=== PATIENT | male | born 1980 | race Asian ===

== ENCOUNTER 2017-03-07 09:04 | Emergency (ER) | payer SELFPAY ==
[2017-03-07 09:17] VITALS: BP 127/80
--- NOTE | 2017-03-07 09:42 | XRay Report ---
LEFT FINGERS, 3 VIEWS History: Pain, swelling. Findings: Posterior dislocation is identified at the proximal interphalangeal joint of the fifth digit. There is no obvious associated fracture. The remaining bony structures and joint spaces are unremarkable. Impression: Posterior dislocation, PIP joint, fifth digit.
--- NOTE | 2017-03-07 11:16 | Emergency Department Report ---
Upper Extremity - HPI Chief Complaint: Extremity Injury, Upper Stated Complaint: LEFT HAND FINGER INJURE Time Seen by Provider: 03/07/17 10:57 Upper Extremity: Left Little Finger (injury to left little finger, With pain and swelling) Occurred When: 1 Day Mechanism: Fall Severity: severe (8 out of 10) Symptoms: Yes Pain with Movement (left small digit), Yes Deformity (left small digit), Yes Limited Range of Movement (Left small digit), Yes Swelling, No Numbness, No Weakness, No Bruising/Ecchymosis, No Laceration or Abrasion Other History: Patient here reports that he slipped and fell on wet floor last night and hit is left fifth finger on the ground. Denies any other injury. He is complaining of pain 8 out of 10 to his left fifth digit. Denies any numbness or tingling. He reports swelling. Immunizations up-to-date. No radiation of pain. ED Review of Systems ROS: Stated complaint: LEFT HAND FINGER INJURE Other details as noted in HPI Comment: All other systems reviewed and negative Constitutional: no symptoms reported Respiratory: no symptoms reported Cardiovascular: denies: chest pain, palpitations, dyspnea on exertion, edema, syncope, paroxysmal nocturnal dyspnea Gastrointestinal: denies: nausea, vomiting Musculoskeletal: joint swelling, arthralgia. denies: back pain, myalgia Skin: denies: rash Neurological: denies: headache, weakness, numbness, paresthesias, confusion, abnormal gait, vertigo ED Past Medical Hx - Past Medical History Previous Medical History?: Yes Hx Asthma: Yes - Surgical History Past Surgical History?: No - Family History Family history: no significant - Social History Smoking Status: Never Smoker Substance Use Type: None - Medications Home Medications: Home Medications Medication Instructions Recorded Confirmed Last Taken Type Ibuprofen [Motrin] 800 mg PO Q8HR PRN 5 Days #15 03/07/17 Unknown Rx tablet Upper Extremity Exam - Exam General: Vital signs noted. No distress. Alert and acting appropriately. This is a 36-year-old male well-nourished well-developed in no acute distress Head and Torso: No HEENT Abnormality, No Neck Tenderness, No Chest/Lungs Abnormality, No Abdominal Tenderness, No Back Tenderness Shoulder Exam: Yes Normal Range of Motion in Shoulder, No Shoulder Tenderness, No Clavicle Tenderness, No Shoulder Deformity, No AC Joint Tenderness Arm Exam: No Arm/Humerus Tenderness, No Arm Deformity Elbow: Yes Normal Range of Motion in Elbow, No Elbow Tenderness, No Elbow Deformity Forearm: No Forearm Tenderness, No Forearm Deformity, No Pain with Pronation, No Pain with Supination Wrist: Yes Normal ROM in Wrist, No Wrist Tenderness, No Wrist Deformity, No Snuffbox Tenderness, No Pain with Axial Thumb Compression Hand: Yes Digit Tenderness (left fifth digit), Yes Digit(s) Deformity (fifth digits at proximal phalanx), No Hand Tenderness, No Hand Deformity, No Normal ROM in Digit(s) (did range of motion to the left fifth digit otherwise normal), No Tendon Dysfunction CMS Exam: Yes Normal Distal Pulses, Yes Normal Capillary Refill, Yes Normal Distal Sensation, No Broken Skin ED Course Vital Signs 03/07/17 09:13 Temperature 97.7 F Pulse Rate 66 Respiratory 20 Rate Blood Pressure 127/80 O2 Sat by Pulse 96 Oximetry - Reevaluation(s) Reevaluation #1: 03/07/17 12:19 Patient x-ray reveal patient with dislocation of left fifth digit. Digital block to left fifth digits and reduction done. See procedure note for details. Post reduction x-ray in progress - Orthopedic Joint Reduction Joint #1 Consent Obtained: verbal consent Time Out Performed: Yes Side: left Joint Reduction Location: finger (left fifth digit on hand) Analgesia: digital block Local Anesthetic Used: Bupivicaine 0.5% (0.5% Marcaine) Amount of Anesthetic Used (mls): 1 Technique Used: traction/counter-traction Post-Reduction Neuro Exam: intact Post-Reduction Vascular Exam: intact Post Reduction X-Ray Obtained: Yes Post Reduction X-Ray Results: reduced Splint Applied: Yes Patient Tolerated Procedure: well Additional Comments: Patient is neurovascular intact status post reduction and splinting of left fifth finger - Orthopedic Splinting/Casting Injury #1 Side: left Upper Extremity Injury Location: finger Upper Extremity Immobilizer: aluminum form splint, finger (other) ED Medical Decision Making - Radiology Data Radiology results: report reviewed interpreted by me: Postreduction x-ray of left fifth digit revealed successful reduction with metal splint in place. Small avulsion fracture to Proximal phalynx. X-ray reviewed by Dr. Bautista and myself X-ray of left fifth digit 3 views revealed posterior dislocation, PIP joint, fifth digit. - Medical Decision Making ED course: Patient here reports that she fell last night and injured his left fifth finger. Physical findings for swelling, tenderness and deformity to left fifth finger. Patient has 2+ and bounding pulses bilaterally. Limited range of motion to left fifth finger otherwise all extremities are normal. X-ray of left fifth digit reveal patient with his location at PIP joint. Digital block using 0.5% Marcaine to left fifth digit and reduction done. Metal finger splint placed the site and post reduction x-ray showed normal bony alignment to left fifth digit except patient have small avulsion fracture to proximal phalanx. Patient with good, color, sensation, temperature movement to extremities. Patient given Percocet 7.5/325 mg 2 tablets by mouth which decreased his pain. Pulses are normal with no neurovascular compromise. Patient discharged home a prescription for Motrin and to follow up with Dr. Tucker in 2-3 days. He voices understanding the discharge diagnosis and treatment plan and discharged home with his family. Critical care attestation.: If time is entered above; I have spent that time in minutes in the direct care of this critically ill patient, excluding procedure time. ED Disposition Clinical Impression: Reduction defect of left upper extremity, Finger pain, left Dislocation of proximal interphalangeal joint of left little finger Qualifiers: Encounter type: initial encounter Qualified Code(s): S63.287A - Dislocation of proximal interphalangeal joint of left little finger, initial encounter Phalanx, proximal fracture of finger Qualifiers: Encounter type: initial encounter Finger: little finger Fracture type: closed Fracture alignment: displaced Laterality: left Qualified Code(s): S62.617A - Displaced fracture of proximal phalanx of left little finger, initial encounter for closed fracture Disposition: DC- TO HOME OR SELFCARE Is pt being admited?: No Does the pt Need Aspirin: No Condition: Stable Instructions: Finger Fracture (ED), Finger Dislocation (ED), Arthralgia (ED) Additional Instructions: Please keep metal splint on until seen by orthopedic doctor Please follow discharge instructions on splint Motrin for pain as needed Please do not remove splint from left fifth finger until seen by orthopedic doctor. Prescriptions: Ibuprofen [Motrin] 800 mg PO Q8HR PRN 5 Days #15 tablet PRN Reason: Pain, Moderate (4-6) Referrals: KAYDEN TUCKER MD [Staff Physician] - 2-3 Days Forms: Accompanied Note, Work/School Release Form(ED)
[2017-03-07] MEDS ORDERED: MARCAINE 0.5% INFILTRATI ONE (11:25)
[2017-03-07] MEDS ORDERED: NORCO 7.5/325 PO ONE (12:11)
--- NOTE | 2017-03-07 12:35 | XRay Report ---
LEFT FINGERS, 2 VIEWS History: Postreduction film. Fifth digit dislocation. Findings: The posterior dislocation at the proximal interphalangeal joint of the fifth digit has been reduced and is now anatomic in alignment. There is suggestion of a tiny bony fragment anterior to the PIP joint on the lateral view only which probably represents a small chip or avulsion fracture. Impression: Successful reduction of the fifth digit dislocation. See above.
== END 2017-03-07 12:52 | disposition home or self-care (01) ==
LOC: ED 09:04
DX: S62.617A Displaced fracture of proximal phalanx of left little finger, initial encounter for closed fracture (principal); S63.287A Dislocation of proximal interphalangeal joint of left little finger, initial encounter; W01.0XXA Fall on same level from slipping, tripping and stumbling without subsequent striking against object, initial encounter; Y93.89 Activity, other specified; Y92.89 Other specified places as the place of occurrence of the external cause; Y99.8 Other external cause status
CPT/HCPCS: 99283

== ENCOUNTER 2020-12-03 05:15 | Emergency (ER) | payer SELFPAY ==
[2020-12-03 06:52] VITALS: BP 151/87
[2020-12-03 07:03] LABS: Bilirubin,Urine NEG (Negative); Blood,Urine NEG (Negative); Color,Urine Yellow (Yellow); Mucus,Urine FEW /HPF; Protein,Urine <15 mg/dL mg/dL (Negative); Urobilinogen,Urine < 2.0 mg/dL (<2.0)
[2020-12-03 07:51] LABS: Basophils # (Auto) 0.1 K/mm3 (0.0-0.1); Basophils % (Auto) 0.7 % (0.0-1.8); Eosinophils # (Auto) 0.2 K/mm3 (0.0-0.4); Eosinophils % (Auto) 2.9 % (0.0-4.3); Hematocrit 42.1 % (35.5-45.6); Hemoglobin 14.8 gm/dl (11.8-15.2); Lymphocytes % (Auto) 24.9 % (13.4-35.0); Mean Corpuscular HGB Conc 35 % (32-34); Mean Corpuscular Volume 94 fl (84-94); Monocytes # (Auto) 0.7 K/mm3 (0.0-0.8); Monocytes % (Auto) 8.9 % (0.0-7.3); Platelet Count 359 K/mm3 (140-440); Red Cell Distribution Width 13.5 % (13.2-15.2)
[2020-12-03 08:19] LABS: Alanine Aminotransferase 61 units/L (7-56); Albumin 3.8 g/dL (3.9-5); BUN/Creatinine Ratio 19; Blood Urea Nitrogen 15 mg/dL (9-20); Calcium 9.1 mg/dL (8.4-10.2); Hemolysis Index 8
--- NOTE | 2020-12-03 10:30 | Emergency Department Report ---
ED Back Pain/Injury HPI - General Chief Complaint: Abdominal Pain Stated Complaint: BACK/KIDNEY PAIN Time Seen by Provider: 12/03/20 10:05 Source: patient Limitations: No Limitations - History of Present Illness Initial Comments: Chief complaint: Lower right back pain HPI: This is a 40-year-old male with history of asthma who presents with sudden onset of right flank pain yesterday afternoon. Pain occurred suddenly while walking. Worse with movement. Patient took his 's hydrocodone which did not provide much relief. Back brace helps his pain. He does not recall any heavy lifting. He denies fever, vomiting, hematuria. No previous history of kidney stones. He denies constipation or diarrhea. No leg weakness. 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 His children are ages 16 and 7. MD Complaint: back pain -: Sudden, days(s) (Yesterday afternoon) Similar Symptoms Previously: No Place: work Radiation: none Severity: severe Severity scale (0 -10): 8 Quality: dull, other (Throbbing) Consistency: constant Improves With: other (Back brace) Worsens With: sitting upright, walking Associated Symptoms: denies other symptoms - Related Data Previous Rx's Medication Instructions Recorded Last Taken Type Ibuprofen [Motrin] 800 mg PO Q8HR PRN 5 Days #15 03/07/17 Unknown Rx tablet Cyclobenzaprine [Flexeril] 10 mg PO TID PRN #20 tablet 12/03/20 Unknown Rx Ibuprofen [Motrin 800 MG tab] 800 mg PO Q8HR PRN #15 tablet 12/03/20 Unknown Rx oxyCODONE /ACETAMINOPHEN [Percocet 1 tab PO Q6HR PRN #10 tablet 12/03/20 Unknown Rx 5/325] Allergies Allergy/AdvReac Type Severity Reaction Status Date / Time No Known Allergies Allergy Verified 12/03/20 06:52 ED Review of Systems ROS: Stated complaint: BACK/KIDNEY PAIN Other details as noted in HPI Comment: All other systems reviewed and negative Constitutional: denies: chills Respiratory: denies: cough, shortness of breath Gastrointestinal: denies: abdominal pain, nausea, vomiting, diarrhea Musculoskeletal: back pain Neurological: denies: numbness, paresthesias, confusion, abnormal gait ED Past Medical Hx - Past Medical History Previous Medical History?: Yes Hx Asthma: Yes - Surgical History Past Surgical History?: No - Social History Smoking Status: Never Smoker Substance Use Type: None - Medications Home Medications: Home Medications Medication Instructions Recorded Confirmed Last Taken Type Ibuprofen [Motrin] 800 mg PO Q8HR PRN 5 Days #15 03/07/17 Unknown Rx tablet Cyclobenzaprine [Flexeril] 10 mg PO TID PRN #20 tablet 12/03/20 Unknown Rx Ibuprofen [Motrin 800 MG tab] 800 mg PO Q8HR PRN #15 tablet 12/03/20 Unknown Rx oxyCODONE /ACETAMINOPHEN [Percocet 1 tab PO Q6HR PRN #10 tablet 12/03/20 Unknown Rx 5/325] ED Physical Exam - General Limitations: No Limitations General appearance: alert, in no apparent distress, other (Steady normal gait nontoxic-appearing) - Head Head exam: Present: atraumatic, normocephalic - Eye Eye exam: Present: normal appearance - ENT ENT exam: Present: mucous membranes moist - Neck Neck exam: Present: normal inspection - Respiratory Respiratory exam: Present: normal lung sounds bilaterally. Absent: respiratory distress - Cardiovascular Cardiovascular Exam: Present: regular rate, normal rhythm. Absent: systolic murmur, diastolic murmur, rubs, gallop - GI/Abdominal GI/Abdominal exam: Present: soft, normal bowel sounds - Rectal Rectal exam: Present: deferred - Extremities Exam Extremities exam: Present: normal inspection - Back Exam Back exam: Present: full ROM, muscle spasm. Absent: tenderness, CVA tenderness (R), CVA tenderness (L), paraspinal tenderness, vertebral tenderness, rash noted - Neurological Exam Neurological exam: Present: alert, oriented X3, normal gait - Psychiatric Psychiatric exam: Present: normal affect, normal mood - Skin Skin exam: Present: warm, dry, intact, normal color. Absent: rash ED Course Vital Signs 12/03/20 06:50 Temperature 98.1 F Pulse Rate 65 Respiratory 18 Rate Blood Pressure 151/87 [Left] O2 Sat by Pulse 96 Oximetry ED Medical Decision Making - Lab Data Result diagrams: 12/03/20 07:07 12/03/20 07:07 - Radiology Data Radiology results: report reviewed CT ABDOMEN AND PELVIS WITHOUT CONTRAST HISTORY: Severe right flank pain. COMPARISON: None. TECHNIQUE: CT images of the abdomen and pelvis were obtained without administration of intravenous contrast. All CT scans at this location are performed using CT dose reduction for ALARA by means of automated exposure control. FINDINGS: Lungs/bones: There is patchy multifocal groundglass airspace disease in the lung bases. No acute osseous abnormality or significant DJD. Abdomen/pelvis: There is hepatomegaly with steatosis. The liver otherwise appears unremarkable. The gallbladder, spleen, pancreas, adrenals, kidneys, and proximal GI tract otherwise appear unremarkable. There is a tiny simple cyst in the midpole the left. Prostate and urinary bladder are unremarkable with no pelvic free fluid. No acute colonic abnormality. The appendix and terminal ileum appear normal. IMPRESSION: 1. Lung base findings suggestive of Covid pneumonia. 2. Hepatomegaly with steatosis. 3. Otherwise nothing acute. No renal stone disease, cholecystitis, or appendicitis. Signer Name: Vishal Augustine MD Signed: 12/03/2020 12:05 PM Workstation Name: [id number] - Medical Decision Making 1. Musculoskeletal back pain, lumbar strain: No evidence of kidney stone, intra-abdominal or retroperitoneal process ruled out with CT scan. 2. COVID-19 infection: Patient was recently diagnosed COVID-19 three weeks ago. He denies any symptoms at this time. He denies shortness of breath chest pain cough. He has had a recent negative test. I have prescribed Percocet, ibuprofen, Flexeril. Referred to internal medicine physician as needed. Critical care attestation.: If time is entered above; I have spent that time in minutes in the direct care of this critically ill patient, excluding procedure time. ED Disposition Clinical Impression: Pneumonia due to COVID-19 virus, Lumbar strain Disposition: HOME / SELF CARE / HOMELESS Is pt being admited?: No Does the pt Need Aspirin: No Condition: Stable Instructions: Bacterial Pneumonia (ED) Prescriptions: Cyclobenzaprine [Flexeril] 10 mg PO TID PRN #20 tablet PRN Reason: Muscle Spasm Ibuprofen [Motrin 800 MG tab] 800 mg PO Q8HR PRN #15 tablet PRN Reason: Pain , Severe (7-10) oxyCODONE /ACETAMINOPHEN [Percocet 5/325] 1 tab PO Q6HR PRN #10 tablet PRN Reason: Pain Referrals: JUAN PABLO SANTIAGO MD [Staff Physician] - as needed Forms: Work/School Release Form(ED)
--- NOTE | 2020-12-03 13:10 | Cat Scan Report ---
CT ABDOMEN AND PELVIS WITHOUT CONTRAST HISTORY: Severe right flank pain. COMPARISON: None. TECHNIQUE: CT images of the abdomen and pelvis were obtained without administration of intravenous co ntrast. All CT scans at this location are performed using CT dose reduction for ALARA by means of au tomated exposure control. FINDINGS: Lungs/bones: There is patchy multifocal groundglass airspace disease in the lung bases. No acute oss eous abnormality or significant DJD. Abdomen/pelvis: There is hepatomegaly with steatosis. The liver otherwise appears unremarkable. The gallbladder, spleen, pancreas, adrenals, kidneys, and proximal GI tract otherwise appear unremarkable . There is a tiny simple cyst in the midpole the left. Prostate and urinary bladder are unremarkable with no pelvic free fluid. No acute colonic abnormality . The appendix and terminal ileum appear normal. IMPRESSION: 1. Lung base findings suggestive of Covid pneumonia. 2. Hepatomegaly with steatosis. 3. Otherwise nothing acute. No renal stone disease, cholecystitis, or appendicitis. Signer Name: Vishal Augustine MD Signed: 12/03/2020 1:05 PM Workstation Name: [id number]
== END 2020-12-03 14:00 | disposition home or self-care (01) ==
LOC: ED 05:15
DX: U07.1 COVID-19 (principal); J12.82 Pneumonia due to coronavirus disease 2019; S39.012A Strain of muscle, fascia and tendon of lower back, initial encounter; J45.909 Unspecified asthma, uncomplicated; Z79.899 Other long term (current) drug therapy; X58.XXXA Exposure to other specified factors, initial encounter; Y93.89 Activity, other specified; Y92.89 Other specified places as the place of occurrence of the external cause; Y99.8 Other external cause status
CPT/HCPCS: 36415; 74176; 80053; 81001; 85025; 99284